=== PATIENT | male | born 1985 | race Two or more races ===

== ENCOUNTER 2023-06-22 07:35 | Emergency (ER) | payer SELFPAY ==
[~2023-06-22] VITALS: Ht 177.8 cm; Wt 96.8 kg
[2023-06-22 08:07] VITALS: BP 152/98; PULSE 103; RESP 16; TEMP 98.1; O2SAT 96
[2023-06-22] MEDS ORDERED: LIDOCAINE 1% HCL (LOCAL ANESTH.) INJ 20ML MDV ONE (08:23)
[2023-06-22] MEDS ORDERED: IBUP-1456 PO (08:35)
[2023-06-22] MEDS ORDERED: BACDST PO (08:35)
[2023-06-22] MEDS ORDERED: cefTRIAXone SOD 1,000 MG VL IM ONE (08:45)
== END 2023-06-22 08:56 | disposition home or self-care (01) ==
LOC: ER 07:35
DX: L02.413 Cutaneous abscess of right upper limb (principal); I10 Essential (primary) hypertension; F17.210 Nicotine dependence, cigarettes, uncomplicated; Z79.1 Long term (current) use of non-steroidal anti-inflammatories (NSAID); Z79.899 Other long term (current) drug therapy
CPT/HCPCS: 10060; 87077; 87186; 87205; 96372; 99283; J0696; J2001